=== PATIENT | male | born 1980 | race Caucasian/White ===

== ENCOUNTER 2024-12-23 20:05 | Emergency (ER) | payer OTHER ==
[~2024-12-23] VITALS: Ht 188 cm; Wt 99.8 kg
[2024-12-23 23:12] VITALS: BP 145/103; TEMP 98; O2SAT 99
[2024-12-24] MEDS ORDERED: LORAZEPAM 1 MG TABLET ONE ×2 (00:01)
[2024-12-24] MEDS: LORAZEPAM 1 MG TABLET PO ONE (00:03)
[2024-12-24] MEDS ORDERED: CHLO25CA22 PO (17:38)
== END 2024-12-24 01:14 | disposition home or self-care (01) ==
LOC: ER 20:24
DX: F41.9 Anxiety disorder, unspecified (principal)

== ENCOUNTER 2024-12-24 15:36 | Emergency (ER) | payer OTHER ==
[~2024-12-24] VITALS: Ht 188 cm; Wt 99.8 kg
[2024-12-24 16:37] LABS: PLATELET COUNT (AUTO) 278 K/uL (150-450); RED BLOOD CELL COUNT(AUTO) 4.27 MIL/uL (4.5-6.0); RED CELL DISTRIBUTION WIDTH 13.7 % (11.5-15.0); WHITE BLOOD COUNT (AUTO) 6.5 K/uL (4.3-11.0)
[2024-12-24 16:54] LABS: ASPARTATE AMINOTRANSFERASE 106.0 U/L (15-37); CALCIUM, SERUM 9.3 mg/dL (8.5-10.1); CREATININE 0.8 mg/dL (0.6-1.3); SODIUM SERUM 135.0 mmol/L (136-145); TOTAL PROTEIN, SERUM 8.0 g/dL (6.4-8.2); UREA NITROGEN, BLOOD 8.0 mg/dL (7-18)
[2024-12-24] MEDS: NS 0.9% IV ONE (16:55)
[2024-12-24] MEDS: PHENOBARBITAL SODIUM IV ONE (16:55)
[2024-12-24 17:23] LABS: APPEARANCE,URINE CLEAR (CLEAR); BLOOD, URINE Trace-intact Ery/uL (NEGATIVE); LEUKOCYTE ESTERASE ,URINE Negative (NEGATIVE); NITRITE, URINE NEGATIVE (NEGATIVE); UGLUCOSE Negative (NEGATIVE)
[2024-12-24 17:35] LABS: ADD URINE CULTURE NO; SQUAMOUS EPITHELIAL CELL,UR 0-2 /HPF (None Seen)
[2024-12-24] MEDS ORDERED: CHLO25CA22 PO (17:38)
[2024-12-24 17:59] VITALS: BP 131/87; TEMP 98.5; O2SAT 98
== END 2024-12-24 18:00 | disposition home or self-care (01) ==
LOC: ER 15:43
DX: F10.239 Alcohol dependence with withdrawal, unspecified (principal); R10.31 Right lower quadrant pain; Z90.49 Acquired absence of other specified parts of digestive tract; Y90.9 Presence of alcohol in blood, level not specified
CPT/HCPCS: 99285; 74176; 96374; 85025; 83690; 81001; 36415; 80053; J2560; J7030